=== PATIENT | female | born 1945 | race Hispanic/Latino ===

== ENCOUNTER → 2018-02-08 | Outpatient (CLI) | payer OTHER, MEDICARE ==
[~2018-02-08] MED LIST: AEC81 PO; ATOR10TA69 PO; CETI10TA57 PO; DILT180T12 PO; FLUTICASONE NASAL; FURO20TA4 PO; METO25TA6 PO; NORT75CA PO; PANT40TA25 PO; VALA100027 PO
== END | disposition home or self-care (01) ==
LOC: SHCH 13:58
PROVIDERS: ATTEND Internal Medicine Cardiovascular Disease
DX: I42.2 Other hypertrophic cardiomyopathy (principal); I10 Essential (primary) hypertension; E78.00 Pure hypercholesterolemia, unspecified
CPT/HCPCS: 93306

== ENCOUNTER → 2022-10-03 | Outpatient (CLI) | payer OTHER, MEDICARE ==
[~2022-10-03] MED LIST changes: -PANT40TA25 PO; +PANT40TA54 PO; -VALA100027 PO; +VALA100031 PO
== END | disposition home or self-care (01) ==
LOC: SHCH 10:17
PROVIDERS: ATTEND Internal Medicine Cardiovascular Disease
DX: I42.1 Obstructive hypertrophic cardiomyopathy (principal)
CPT/HCPCS: 93306

== ENCOUNTER → 2023-02-05 | Outpatient (CLI) | payer OTHER, MEDICARE | END | disposition home or self-care (01) | LOC: SHCH 15:16 | PROVIDERS: ATTEND Internal Medicine Cardiovascular Disease | DX: I42.1 Obstructive hypertrophic cardiomyopathy (principal) | CPT/HCPCS: 93308 ==

== ENCOUNTER 2024-03-07 22:27 | Emergency (ER) | payer OTHER, MEDICARE ==
[~2024-03-07] VITALS: Ht 165.1 cm; Wt 70.3 kg
[2024-03-07 23:01] LABS: BASOPHILS # (AUTO) 0.03 K/uL (0.00-0.20); BASOPHILS % (AUTO) 0.4 % (0.0-5.0); EOSINOPHILS # (AUTO) 0.26 K/uL (0.00-0.70); EOSINOPHILS % (AUTO) 3.5 % (0.0-8.0); HEMATOCRIT 37.5 % (36-48); IMMATURE GRANULOCYTE ABSOLUTE 0.03 K/uL (0-1); LYMPHOCYTES # (AUTO) 1.7 K/uL (1.0-4.8); LYMPHOCYTES % (AUTO) 22.7 % (21.0-51.0); MEAN CORPUSCULAR HEMOGLOBIN 29.7 pg (27.0-33.0); MEAN CORPUSCULAR HGB CONC 33.6 g/dL (32.0-36.0); MEAN CORPUSCULAR VOLUME 88.4 fL (79-99); MONOCYTES # (AUTO) 0.5 K/uL (0.1-1.0); MONOCYTES % (AUTO) 6.6 % (3.0-13.0); NEUTROPHILS # (AUTO) 4.9 K/uL (1.8-7.7); NEUTROPHILS % (AUTO) 66.4 % (40.0-77.0); PLATELET COUNT (AUTO) 157 K/uL (130-400); RED BLOOD CELL COUNT(AUTO) 4.24 MIL/uL (4.00-5.50); RED CELL DISTRIBUTION WIDTH 13.2 % (11.0-15.5); WHITE BLOOD COUNT (AUTO) 7.4 K/uL (4.8-10.8)
--- NOTE | 2024-03-07 23:01 | ERN ---
ED Note History of Present Illness Stated Complaint: SOB Chief Complaint: Shortness of Breath Time Seen by MD: 22:30 Dictation: Patient is a 78-year-old female with a past medical history of CHF, hypertrophic obstructive cardiomyopathy, hypertension who presented to the ER complaining of chest pressure associated with the mild shortness breath while she was watching TV tonight. During my evaluation the patient stated that her symptoms was already subsiding. Initial workup vital signs was within normal limits. Allergies: Coded Allergies: No Allergy Information Available (Verified Allergy, Unknown, 09/23/15) Home Meds Reported Medications Cetirizine HCl (Cetirizine HCl) 10 Mg Tablet, 10 MG PO DAILY, TAB 10/25/15 [Fluticasone] No Conflict Check, 1 SPRAY NASAL DAILY 10/25/15 Furosemide (Furosemide) 20 Mg Tablet, 20 MG PO QODAY, TAB 10/25/15 Pantoprazole Sodium (Pantoprazole Sodium) 40 Mg Tablet.dr, 40 MG PO DAILY, TAB 10/25/15 Valacyclovir HCl (Valacyclovir) 1,000 Mg Tablet, 1000 MG PO AD, TAB 10/25/15 Diltiazem HCl (Diltiazem ER) 180 Mg Tab.er.24h, 180 MG PO DAILY, TAB 10/25/15 Nortriptyline HCl (Nortriptyline HCl) 75 Mg Capsule, 75 MG PO HS, CAP 10/25/15 Atorvastatin Calcium (Atorvastatin Calcium) 10 Mg Tablet, 10 MG PO DAILY, TAB 10/25/15 Aspirin (ASPIRIN 81 MG ECTAB) 81 Mg Ectab, 81 MG PO DAILY, TAB.EC 10/25/15 Metoprolol Tartrate (Metoprolol Tartrate) 25 Mg Tablet, 25 MG PO DAILY, TAB 10/25/15 Past Medical History Past Medical History: Anxiety, Arthritis, Dementia, Fibromyalgia, Hypertension, Other Additional Past Medical Hx: ENLARGED HEART Surgical History: Cholecystectomy Review of System Dictation NEGATIVE EXCEPT PER HPI Constitutional: Negative for fever,chills, and weight loss Eyes: Negative for injury, pain,redness, and discharge ENT: Negative for injury,pain or swelling Cardiovascular: Chest pressure Respiratory: Shortness breath Abdomen/GI: Negative for abdominal pain, nausea, vomiting, diarrhea, and constipation Back: Negative for injury and pain : Negative for injury, bleeding and discharge MS/Extremity: Negative for injury and deformity Skin: Negative for rash, and discoloration Neuro: Negative for headache, weakness, numbness, tingling, and seizure Psych: Negative for suicide ideation, homicidal ideation, and hallucinations Initial Vital Sign VS Vital Signs Date Time Temp Pulse Resp B/P (MAP) Pulse Ox O2 Delivery O2 Flow Rate FiO2 03/07/24 22:29 96.6 94 16 143/63 97 Room Air Physical Exam Dictation General: awake, alert, NAD Head/Face: Normocephalic, atraumatic Eyes: PERRL, EOMI, vision at baseline ENT: oral cavity clear, TMs clear, no signs of infection Neck: Trachea midline, supple, no nuchal rigidity Cardiovascular: RRR, normal S1/S2, No MRGs, no JVD Respiratory: CTAB, no respiratory distress, No rales or wheezes Abdomen: Soft , no tender Skin: Warm, dry, normal turgor, no rash MS/Extremity: Pulses equal, no cyanosis, neurovascular intact, FROM Neuro: COAx4, GCS 15, strength 5/5, CN 2-12 intact, normal cerebellar exam, normal gait, Psych: Normal behavior, mood, and affect normal Results (Laboratory/Radiology) Laboratory/Radiology Laboratory Tests Test 03/07/24 22:54 White Blood Count 7.4 K/uL (4.8-10.8) Red Blood Count 4.24 MIL/uL (4.00-5.50) Hemoglobin 12.6 g/dL (12.0-16.0) Hematocrit 37.5 % (36-48) Mean Corpuscular Volume 88.4 fL (79-99) Mean Corpuscular Hemoglobin 29.7 pg (27.0-33.0) Mean Corpuscular Hemoglobin Concent 33.6 g/dL (32.0-36.0) Red Cell Distribution Width 13.2 % (11.0-15.5) Platelet Count 157 K/uL (130-400) Mean Platelet Volume 11.1 fL (7.5-10.5) H Immature Granulocyte % (Auto) 0.4 % (0-1) Neutrophils (%) (Auto) 66.4 % (40.0-77.0) Lymphocytes (%) (Auto) 22.7 % (21.0-51.0) Monocytes (%) (Auto) 6.6 % (3.0-13.0) Eosinophils (%) (Auto) 3.5 % (0.0-8.0) Basophils (%) (Auto) 0.4 % (0.0-5.0) Neutrophils # (Auto) 4.9 K/uL (1.8-7.7) Lymphocytes # (Auto) 1.7 K/uL (1.0-4.8) Monocytes # (Auto) 0.5 K/uL (0.1-1.0) Eosinophils # (Auto) 0.26 K/uL (0.00-0.70) Basophils # (Auto) 0.03 K/uL (0.00-0.20) Absolute Immature Granulocyte (auto 0.03 K/uL (0-1) Nucleated Red Blood Cells 0.0 % (0.0-0.19) Sodium Level 145 mmol/L (136-145) Potassium Level 3.6 mmol/L (3.5-5.1) Chloride Level 107 mmol/L (101-111) Carbon Dioxide Level 34 mmol/L (21-32) H Blood Urea Nitrogen 11 mg/dL (7-18) Creatinine 0.8 mg/dL (0.5-1.0) Glomerular Filtration Rate Calc 76 mL/min (>90) Random Glucose 121 mg/dL (70-105) H Total Calcium 8.8 mg/dL (8.5-10.1) Troponin I High Sensitivity 14 ng/L (4-50) B-Type Natriuretic Peptide 295 pg/mL (0-100) H EKG Comment: Sinus rhythm, right bundle branch block, left ventricular hypertrophy Rate 54, NM 159, QRS D 141, QT 518 STEMI negative ED Course ED Course Orders Procedure Category Date Status Time Cbc With Differential LAB 03/07/24 Complete 22:30 Basic Metabolic Panel LAB 03/07/24 Complete 22:30 Troponin I High LAB 03/07/24 Complete Sensitivity 22:30 Chest 1vw RAD 03/07/24 Taken 22:30 12 Lead Ekg Tracing- EKG 03/07/24 Logged Technical 22:30 B-Type Natriuretic LAB 03/07/24 Complete Peptide 22:30 Aspirin 81mg Chew Tab PHA 03/07/24 Complete (Aspirin 81mg Chew 23:30 12 Lead Ekg Tracing- EKG 03/07/24 Logged Technical 23:52 Cyclobenzaprine Hcl PHA 03/08/24 Complete (Cyclobenzaprine Hcl 00:30 Furosemide 40 Mg PHA 03/08/24 Complete Tablet (Lasix 40mg 00:30 Furosemide 40 Mg PHA 03/08/24 In Process Tablet (Lasix 40mg 01:00 Furosemide 40 Mg PHA 03/08/24 Complete Tablet (Lasix 40mg 00:44 Current Medications Medications (Trade) Dose Ordered Sig/Morgan Route PRN Reason Start Time Stop Time Status Last Admin Dose Admin Aspirin (Aspirin 81mg Chew Tab) 81 mg ONCE ONCE PO 03/07/24 23:30 03/07/24 23:31 DC 03/07/24 23:50 Cyclobenzaprine HCl (Cyclobenzaprine HCl) 5 mg ONCE ONCE PO 03/08/24 00:30 03/08/24 00:31 DC Furosemide (LASix 40MG TAB) 40 mg ONCE ONCE PO 03/08/24 00:30 03/08/24 00:35 DC Furosemide (LASix 40MG TAB) 40 mg ONCE ONCE PO 03/08/24 01:00 03/08/24 01:01 Furosemide (LASix 40MG TAB) 40 mg STK-MED ONCE .ROUTE 03/08/24 00:44 03/08/24 00:44 DC Vital Signs Date Time Temp Pulse Resp B/P (MAP) Pulse Ox O2 Delivery O2 Flow Rate FiO2 03/07/24 22:29 96.6 94 16 143/63 97 Room Air Medical Decision Making MDM Patient is a 78-year-old female with a past medical history of fibromyalgia, CHF, hypertrophic obstructive cardiomyopathy, hypertension who presented to the ER complaining of chest pressure associated with the mild shortness breath while she was watching TV tonight. -CHF exacerbation -fibromyalgia flare -CAD Patient evaluated at bedside, no chest pain. No shortness a breath. Reports a chest pressure. EKG performed sinus rhythm, right bundle branch block, left ventricular hypertrophy Laboratory was reviewed, BNP 295, high sensitive troponin 14 Aspirin 81, furosemide 40 mg. Flexeril 5 mg ordered Patient re-evaluate at bedside, there is improvement of her symptoms. She will be discharged home with recommended to follow up with the primary care physician also with the PCP. DX & DISP Disposition: Discharge Departure Impression: Primary Impression: CHF (congestive heart failure) Additional Impressions: Hypertrophic cardiomyopathy, Anxiety Condition: Stable Additional Instructions: RETURN TO ER FOR ANY ACUTE OR WORSENING SYMPTOMS. FOLLOW-UP IN 1-2 DAYS WITH PRIMARY PROVIDER FOR RECHECK OF TODAY'S SYMPTOMS. Referrals: MILAN HARRIS MD (PCP) Time of Disposition: 00:41 CEDRICK ERWIN MD Mar 07, 2024 23:01
[2024-03-07 23:11] LABS: CREATININE 0.8 mg/dL (0.5-1.0); POTASSIUM 3.6 mmol/L (3.5-5.1)
[2024-03-07 23:50] LABS: B-TYPE NATRIURETIC PEPTIDE 295 pg/mL (0-100)
[2024-03-07] MEDS: ASPIRIN 81MG CHEW TAB PO ONE (23:50)
--- NOTE | 2024-03-07 23:51 | NUR ---
PT WITH THREE [employer] MEMBERS IN LOBBY. SITTING ALONG WINDOWS. INTERACTING WELL. NO SIGNS OF DISTRESS, NO LABORED BREATHING NOTED. GOOD EVEN CHEST RISE AND FALL OBSERVED
--- NOTE | 2024-03-08 00:20 | NUR ---
ASSUMED PT CARE AT THIS TIME
[2024-03-08] MEDS ORDERED: furoSEMIDE 40 MG TABLET PO ONE (00:30)
[2024-03-08] MEDS: CYCLOBENZAPRINE HCL 10 MG TABLET PO ONE (01:01)
[2024-03-08] MEDS: furoSEMIDE 40 MG TABLET PO ONE (01:02)
[2024-03-08] MEDS: furoSEMIDE 40 MG TABLET ONE (01:02)
[2024-03-08 01:13] VITALS: BP 136/76; PULSE 97; RESP 18; TEMP 97.2; O2SAT 97
--- NOTE | 2024-03-08 06:31 | EKG ---
[facility] Test Date: 2024-03-08 Test Time: 00:13:39 Pat Name: AYAAN BENSON Department: ED Room: Gender: F Community Liaison: [id number] : 1945 Requested By: CEDRICK DURAN Order Number: [id number] Reading MD: Rosmery Tran Measurements Intervals [place] Rate: 54 P: 39 TN: 159 QRS: -11 QRSD: 141 T: -9 QT: 518 QTc: 493 Interpretive Statements Sinus rhythm Right bundle branch block LVH with secondary repolarization abnormality Compared to ECG 10/25/2015 08:36:27 Right bundle-branch block now present Early repolarization now present T-wave abnormality no longer present Electronically Signed On 03-08-2024 16:20:49 MARINE PHOTOGRAPHER by Rosmery Tran Please click the below link to view image of tracing.
--- NOTE | 2024-03-08 06:32 | EKG ---
[facility] Test Date: 2024-03-07 Test Time: 22:45:33 Pat Name: AYAAN BENSON Department: ED Room: Gender: F Handle Turner: [id number] : 1945 Requested By: CEDRICK DURAN Order Number: [id number] Reading MD: Rosmery Tran Measurements Intervals [place] Rate: 58 P: 40 SD: 168 QRS: -158 QRSD: 150 T: 0 QT: 499 QTc: 488 Interpretive Statements Sinus rhythm Probable left atrial enlargement Right bundle branch block Left ventricular hypertrophy Abnrm T, consider ischemia, anterolateral lds Compared to ECG 10/25/2015 08:36:27 Right bundle-branch block now present Possible ischemia now present T-wave abnormality no longer present Electronically Signed On 03-08-2024 16:20:46 RACKING MACHINE OPERATOR by Rosmery Tran Please click the below link to view image of tracing.
--- NOTE | 2024-03-08 09:12 | HMCIMG ---
Exam Type: CHEST 1VW Clinical Information: SOB Comparison: None Findings: The lungs are clear of infiltrates. The heart is enlarged. Bony and soft tissue structures of the chest wall are unremarkable. IMPRESSION: Cardiomegaly. Clear lungs.
== END 2024-03-08 01:14 | disposition home or self-care (01) ==
LOC: EDH 22:27
DX: I11.0 Hypertensive heart disease with heart failure (principal); I50.9 Heart failure, unspecified; I43 Cardiomyopathy in diseases classified elsewhere; F03.94 Unspecified dementia, unspecified severity, with anxiety; M19.90 Unspecified osteoarthritis, unspecified site; M79.7 Fibromyalgia; Z79.82 Long term (current) use of aspirin; Z79.899 Other long term (current) drug therapy; Z90.49 Acquired absence of other specified parts of digestive tract
CPT/HCPCS: 36415; 71045; 80048; 83880; 84484; 85025; 93005; 99285